=== PATIENT | female | born 1950 | race Caucasian/White ===

== ENCOUNTER 2018-01-09 17:37 | Emergency (ER) | payer MEDICARE, MEDICAID ==
[2018-01-09 18:16] VITALS: BP 174/54
--- NOTE | 2018-01-09 18:46 | EDM.PDOC ---
ED HPI GENERAL MEDICAL PROBLEM - General Chief Complaint: Genitourinary Problem Stated Complaint: UTI Time Seen by Provider: 01/09/18 18:15 Source of Information: Reports: Patient, RN Notes Reviewed History Limitations: Reports: No Limitations - History of Present Illness INITIAL COMMENTS - FREE TEXT/NARRATIVE: 67-year-old female presents emergency department today with complaint of dysuria , she was recently treated for urinary tract infection about 3 weeks ago was treated with Bactrim seven-day course of antibiotics states after the antibiotics she did well for about a week and then over the last 3 days she developed more symptoms of burning with urination she is not had any fevers or back pain - Related Data Allergies Allergy/AdvReac Type Severity Reaction Status Date / Time penicillin Allergy Cannot Verified 01/09/18 18:20 Remember Home Meds: Home Meds Aspirin [Gary Chewable Aspirin] 11/22/14 [History] Levothyroxine [Synthroid] 11/22/14 [History] Metoprolol Tartrate [Lopressor] 11/22/14 [History] Warfarin [Coumadin] 11/22/14 [History] Warfarin [Coumadin] 11/22/14 [History] Past Medical History - Past Surgical History Other GI Surgeries/Procedures: splenectomy Social & Family History - Tobacco Use Smoking Status *Q: Never Smoker ED ROS GENERAL - Review of Systems Review Of Systems: See Below Constitutional: Denies: Fever, Chills GI/Abdominal: Denies: Abdominal Pain, Nausea, Vomiting : Reports: Dysuria, Frequency. Denies: Hematuria ED EXAM, RENAL/ - Physical Exam Exam: See Below Exam Limited By: No Limitations General Appearance: Alert, WD/WN, No Apparent Distress Respiratory/Chest: No Respiratory Distress GI/Abdominal: Soft, Non-Tender Back Exam: No: CVA Tenderness (R), CVA Tenderness (L) Course - Vital Signs Last Recorded V/S: Last Vital Signs Temp 96.8 F 01/09/18 18:25 Pulse 78 01/09/18 18:25 Resp 18 01/09/18 18:25 BP 174/54 H 01/09/18 18:25 Pulse Ox 97 01/09/18 18:25 - Orders/Labs/Meds Orders: Active Orders 24 hr Category Date Time Status CULTURE URINE [RM] Urgent Lab 01/09/18 18:36 Ordered UA W/MICROSCOPIC [URIN] Urgent Lab 01/09/18 18:20 Ordered Labs: Laboratory Tests 01/09/18 Range/Units 18:20 Urine Color Yellow Urine Appearance Slightly cloudy Urine pH 6.5 (4.5-8.0) Ur Specific Emmett 1.010 (1.008-1.030) Urine Protein Negative (NEGATIVE) mg/dL Urine Glucose (UA) Normal (NEGATIVE) mg/dL Urine Ketones Negative (NEGATIVE) mg/dL Urine Occult Blood Large (NEGATIVE) Urine Nitrite Negative (NEGATIVE) Urine Bilirubin Negative (NEGATIVE) Urine Urobilinogen Normal (NORMAL) mg/dL Ur Leukocyte Esterase Large (NEGATIVE) Urine RBC 5-10 H (0-5) Urine WBC 40-50 H (0-5) Ur Epithelial Cells Few Amorphous Sediment Rare Urine Bacteria Moderate Urine Mucus Not seen Urine Other Departure - Departure Time of Disposition: 18:45 Disposition: Home, Self-Care 01 Condition: Good Clinical Impression: UTI, Urinary tract infectious disease - Discharge Information Referrals: PCP,None [Primary Care Provider] - Additional Instructions: Take full course of antibiotics, Please followup with your primary care provider in 5-7 days if not better, please call return to the emergency department with worsening of symptoms. - My Orders Last 24 Hours: My Active Orders 01/09/18 18:20 UA W/MICROSCOPIC [URIN] Urgent 01/09/18 18:36 CULTURE URINE [RM] Urgent - Assessment/Plan Last 24 Hours: My Active Orders 01/09/18 18:20 UA W/MICROSCOPIC [URIN] Urgent 01/09/18 18:36 CULTURE URINE [RM] Urgent Plan: Assessment Acuity = acute Site and laterality = urinary tract infection Etiology = probable bacterial cause Manifestations = dysuria Location of injury = Home Lab values = urinalysis reveals 5-10 rbc's consists with a hematuria and 40-50 WBCs consistent with pyuria cultures pending Plan Because she was recently treated with Bactrim elected to treat her with levofloxacin 500 mg once a day for 5 days however follow-up with her primary care in 5-7 days if no improvement This note was dictated using [employer] voice recognition software please call with any questions on syntax or grammar.
== END 2018-01-09 19:06 | disposition home or self-care (01) ==
LOC: JP.ED 17:37
DX: N39.0 Urinary tract infection, site not specified (principal); Z88.0 Allergy status to penicillin; Z79.82 Long term (current) use of aspirin; Z79.01 Long term (current) use of anticoagulants
CPT/HCPCS: 81001; 87086; 99284

== ENCOUNTER 2020-11-23 20:11 | Emergency (ER) | payer MEDICARE ==
[2020-11-23 20:36] VITALS: BP 170/66; PULSE 91
--- NOTE | 2020-11-23 21:11 | EDM.PDOC ---
ED HPI GENERAL MEDICAL PROBLEM - General Chief Complaint: Lower Extremity Injury/Pain Stated Complaint: R ANKLE SWOLLEN Time Seen by Provider: 11/23/20 20:55 Source of Information: Reports: Patient History Limitations: Reports: No Limitations - History of Present Illness INITIAL COMMENTS - FREE TEXT/NARRATIVE: This is a 70 year old female presenting with right lower extremity swelling. The patient reports that yesterday she noticed swelling of her right ankle and lower leg. She denies any calf pain, but does note a bruise over the anterior guevara that is slightly painful. she does not recall any injury or trauma. She is on Coumadin for heart valve replacement, so she reports she bruises easily. She does note that she was subtherapeutic on her warfarin over the past week though. Last INR was 2.4 2 days ago. She denies any chest pain or SOB. She denies any fever, chills, redness, or warmth to the RLE. Denies swelling in her LLE. She denies history of DVT/PE. Patient reports that she called the nurse line and they were concerned about DVT and told her to come be evaluated. - Related Data Allergies Allergy/AdvReac Type Severity Reaction Status Date / Time penicillin Allergy Cannot Verified 11/23/20 20:31 Remember Home Meds: Home Meds Aspirin [Gary Chewable Aspirin] 1 tab PO DAILY 11/22/14 [History] Levothyroxine [Synthroid] 1 tab PO DAILY 11/22/14 [History] Metoprolol Tartrate [Lopressor] 2 tab PO BID 11/22/14 [History] Warfarin [Coumadin] 1 tab PO DAILY 11/22/14 [History] Alendronate Sodium [Fosamax] 1 tab PO WEEKLY 11/23/20 [History] amLODIPine [Norvasc] 1 tab PO DAILY 11/23/20 [History] atorvaSTATin [Lipitor] 1 tab PO DAILY 11/23/20 [History] Past Medical History Cardiovascular History: Reports: Heart Valve Replacement, High Cholesterol, Hypertension Endocrine/Metabolic History: Reports: Hypoparathyroidism - Past Surgical History Other GI Surgeries/Procedures: splenectomy Female Surgical History: Reports: Hysterectomy, Mastectomy Musculoskeletal Surgical History: Reports: Shoulder Surgery Social & Family History - Tobacco Use Tobacco Use Status *Q: Never Tobacco User Review of Systems - Review of Systems Review Of Systems: Comprehensive ROS is negative, except as noted in HPI. ED EXAM, GENERAL - Physical Exam Exam: See Below Exam Limited By: No Limitations General Appearance: Alert, No Apparent Distress Head: Atraumatic, Normocephalic Neck: Supple, Full Range of Motion Respiratory/Chest: No Respiratory Distress, Lungs Clear, Normal Breath Sounds, No Accessory Muscle Use Cardiovascular: Normal Peripheral Pulses, Regular Rate, Rhythm GI/Abdominal: Soft, Non-Tender, No Distention Extremities: Other (RLE with mild swelling of the foot proximally to about the knee when compared to the left. There is no erythema or warmth. There is a small area of ecchymosis over the anterior aspect of the lower leg. No calf tenderness.). No: Jess's Sign Neurological: Alert, Oriented, CN II-XII Intact, Normal Cognition, No Motor/Sensory Deficits Psychiatric: Normal Affect, Normal Mood Skin Exam: Warm, Dry Course - Vital Signs Last Recorded V/S: Last Vital Signs Temp 97.7 F 11/23/20 20:43 Pulse 91 11/23/20 20:43 Resp 21 H 11/23/20 20:43 BP 170/66 H 11/23/20 20:43 Pulse Ox 95 11/23/20 20:43 - Orders/Labs/Meds Labs: Laboratory Tests 11/23/20 11/23/20 11/23/20 Range/Units 21:15 21:15 21:15 WBC 5.7 (4.5-11.0) K/uL RBC 3.68 (3.30-5.50) M/uL Hgb 11.0 L (12.0-15.0) g/dL Hct 34.9 L (36.0-48.0) % MCV 95 (80-98) fL MCH 30 (27-31) pg MCHC 32 (32-36) % Plt Count 262 (150-400) K/uL Neut % (Auto) 59.7 (36-66) % Lymph % (Auto) 23.1 L (24-44) % Nelson % (Auto) 13.6 H (2-6) % Eos % (Auto) 2.7 (2-4) % Baso % (Auto) 0.9 (0-1) % PT 42.1 H (9.5-12.0) sec INR 3.97 H (0.80-1.20) Sodium 142 (140-148) mmol/L Potassium 3.6 (3.6-5.2) mmol/L Chloride 106 (100-108) mmol/L Carbon Dioxide 28 (21-32) mmol/L Anion Gap 8.3 (5.0-14.0) mmol/L BUN 20 H (7-18) mg/dL Creatinine 0.8 (0.6-1.0) mg/dL Est Cr Clr Drug Dosing 51.01 mL/min Estimated GFR (MDRD) > 60 (>60) Glucose 108 H (74-106) mg/dL Calcium 8.3 L (8.5-10.1) mg/dL Total Bilirubin 0.5 (0.2-1.0) mg/dL AST 60 H (15-37) U/L ALT 56 (12-78) U/L Alkaline Phosphatase 92 (46-116) U/L Total Protein 6.2 L (6.4-8.2) g/dL Albumin 3.4 (3.4-5.0) g/dL Globulin 2.8 (2.3-3.5) g/dL Albumin/Globulin Ratio 1.2 (1.2-2.2) Departure - Departure Time of Disposition: 21:48 Disposition: Home, Self-Care 01 Clinical Impression: Lower extremity edema, Supratherapeutic INR - Discharge Information Referrals: PCP,None [Primary Care Provider] - Forms: ED Department Discharge Additional Instructions: Your INR is supratherapeutic today - please monitor your INR closely at home and discuss with your doctor regarding any dose adjustment of your Coumadin. Elevate your right leg as much as you can over the next few days to help decrease the swelling. Sepsis Event Note (ED) - Evaluation Sepsis Screening Result: No Definite Risk - Focused Exam Vital Signs: Vital Signs Temp Pulse Resp BP Pulse Ox 11/23/20 20:43 97.7 F 91 21 H 170/66 H 95 11/23/20 20:35 97.7 F 91 21 H 170/66 H 95 - Assessment/Plan Assessment:: This is a 70 year old female presenting with right lower leg swelling. differential diagnosis includes DVT, cellulitis, hematoma, CHF, renal failure, liver failure, among others. Patient is afebrile and well appearing here. She does not have any chest pain or SOB to suggest CHF. Her kidney and liver function appears normal on labs. She is mildly anemic with hemoglobin of 11.0, which patient admits is a chronic problem. She denies any bleeding. I considered DVT as a possible cause of her symptoms, but her INR is supratherapeutic today. She did have a few days of subtherapeutic INR and so could have developed a DVT during that time, but even if she does have a DVT, her INR is supratherapeutic and we would not treat her any differently so we did not obtain a lower extremity ultrasound to evaluate for DVT. There was no injury and the patient denies pain. no bony tenderness to indicate need for x-rays as fracture is unlikely. With her supratherapeutic INR, it possible she developed a hematoma that would be causing swelling from a mild trauma that she does not recall, but the extremity is not tense and a large hematoma seems unlikely at this time. Patient is appropriate for discharge home with close follow up with PCP for monitoring of supratherapeutic INR and Coumadin dosing.
== END 2020-11-23 22:25 | disposition home or self-care (01) ==
LOC: JP.ED 20:11
DX: R60.0 Localized edema (principal); R79.1 Abnormal coagulation profile; E78.00 Pure hypercholesterolemia, unspecified; I10 Essential (primary) hypertension; E03.9 Hypothyroidism, unspecified; Z79.01 Long term (current) use of anticoagulants; Z88.0 Allergy status to penicillin; Z79.899 Other long term (current) drug therapy; Z79.82 Long term (current) use of aspirin
CPT/HCPCS: 36415; 80053; 85025; 85610; 99283

== ENCOUNTER 2021-04-21 08:18 | Day surgery (SDC) | payer MEDICARE ==
[2021-04-21] MEDS ORDERED: Sodium Chloride 0.9% 1,000 ML IV SCH (09:30)
[2021-04-21] MEDS ORDERED: fentaNYL 100 MCG/2 ML SDV ONE (10:37)
[2021-04-21] MEDS ORDERED: Propofol 200 MG/20 ML SDV ONE (10:37)
[2021-04-21] MEDS ORDERED: Iopamidol 612 MG/ML 50 ML SDV PO ONE (11:41)
--- NOTE | 2021-04-21 13:07 | OR ---
DATE OF PROCEDURE: 04/21/2021 SURGEON: Junior Zapata MD PROCEDURE: Esophagogastroduodenoscopy. FINDINGS: 1. Inflammation at GE junction concerning for reflux disease (biopsied using cold biopsy forceps). 2. Possible large hiatal hernia. COMPLICATIONS: None. MULTI SENSOR OPERATOR: None. ANESTHESIA: MAC. PREOPERATIVE DIAGNOSIS: Dysphagia. POSTOPERATIVE DIAGNOSIS: Dysphagia. RISKS: Risks, benefits, alternatives, and limitations including, but not limited to infection, bleeding, perforation, false positives, false negatives were explained to the patient, and she wished to proceed. PROCEDURE IN DETAIL: The patient was placed in left lateral decubitus position. The EGD scope was introduced and advanced in. This was advanced to the second part of the duodenum. No evidence of duodenitis or ulceration was noted. The patient did have some mild gastritis, which was biopsied, which showed some very mild gastritis. No active bleeding. Looking at the stomach in an antegrade fashion, it was difficult to determine if this patient did have a rather large hiatal hernia. There appeared to be some narrowing, but difficult to determine due to the large size. She also had some inflammation in the GE junction concerning for reflux disease. This was biopsied using cold biopsy forceps. The air was removed from the stomach. The esophagus was inspected. No abnormalities noted. The patient was scheduled for a CT scan of abdomen and pelvis to further delineate this. Junior Zapata MD /[id number]
[2021-04-21 13:38] VITALS: BP 153/70; PULSE 72
--- NOTE | 2021-04-21 14:18 | CT ---
Abdomen Pelvis wo Cont CLINICAL HISTORY: Hiatal hernia TECHNIQUE: Thin section axial contiguous tomographic sections were taken through the chest without contrast administration. Coronal and sagittal images were reconstructed. Auto dosage reduction and iterative reconstruction techniques employed. FINDINGS: Patient has moderate bilateral pleural effusions. There is some bibasilar airspace disease slightly greater on the left. This likely represent some compressive atelectasis. Patient has had previous sternotomy. There are atherosclerotic changes in the aorta. There is a small hiatal hernia. There are surgical clips in the epigastric region and left upper quadrant. The spleen is absent. The pancreas is poorly defined no obvious mass or ductal dilatation is identified. There are multiple varying size low attenuation foci in both kidneys. These appear to be cysts. No definite calcifications are seen. There is no hydronephrosis. Ureters have a normal course and caliber. The bladder has a normal contour. There is moderate atheromatous change in the aorta without aneurysm. There are left the periaortic clips and sutures just below the renal vessels. The small intestinal configuration is nonacute. There is gas and feces throughout the colon. Uterus is absent. No adnexal mass or free pelvic fluid collections are seen. IMPRESSION: Previous splenectomy related to Hodgkin's lymphoma Moderate bilateral pleural effusions left greater than right Patchy bibasal airspace disease most likely compressive atelectasis. Some pneumonic infiltrate is not excluded Numerous cyst like foci in both kidneys should be correlated with the renal ultrasound Small hiatal hernia
== END 2021-04-21 13:55 | disposition home or self-care (01) ==
LOC: JP.SDS 08:18
PROVIDERS: ATTEND Surgery
DX: K29.70 Gastritis, unspecified, without bleeding (principal); R13.10 Dysphagia, unspecified; K21.9 Gastro-esophageal reflux disease without esophagitis; I10 Essential (primary) hypertension; Z88.0 Allergy status to penicillin
CPT/HCPCS: 43239; 74176; J2704; J3010; J7030; 88305

== ENCOUNTER 2022-01-04 08:55 | Emergency (ER) | payer MEDICARE ==
[2022-01-04 09:15] VITALS: BP 137/53; PULSE 80
== END 2022-01-04 09:33 | disposition home or self-care (01) ==
LOC: JP.ED 08:55
DX: H10.33 Unspecified acute conjunctivitis, bilateral (principal); E78.00 Pure hypercholesterolemia, unspecified; I10 Essential (primary) hypertension; K21.9 Gastro-esophageal reflux disease without esophagitis; Z88.0 Allergy status to penicillin; Z79.82 Long term (current) use of aspirin; Z79.899 Other long term (current) drug therapy; Z79.01 Long term (current) use of anticoagulants
CPT/HCPCS: 99283

== ENCOUNTER 2024-03-12 12:30 | Emergency (ER) | payer MEDICARE ==
[2024-03-12 13:22] LABS: BASOPHILS ABSOLUTE AUTO 0.06 K/uL (0.00-0.10); BASOPHILS PERCENT AUTO 0.9 % (0.1-1.3); EOSINOPHILS PERCENT AUTO 5.7 % (0.0-5.4); HEMATOCRIT 36.7 % (34.3-46.0); HEMOGLOBIN 12.3 g/dL (11.2-15.5); IMMATURE GRAN ABSOLUTE AUTO 0.01 K/uL (0.00-0.23); IMMATURE GRAN PERCENT AUTO 0.1 % (0.0-0.7); LYMPHOCYTES ABSOLUTE AUTO 1.12 K/uL (0.8-3.3); LYMPHOCYTES PERCENT AUTO 16.1 % (11.4-47.7); MEAN CORPUSCULAR HEMOGLOBIN 30.4 pg (31.6-35.5); MEAN CORPUSCULAR HGB CONC 33.5 g/dL (31.6-35.5); MEAN CORPUSCULAR VOLUME 90.6 fL (81.4-99.0); MONOCYTES ABSOLUTE AUTO 0.73 K/uL (0.20-0.90); MONOCYTES PERCENT AUTO 10.5 % (3.3-12.6); NEUTROPHILS ABSOLUTE AUTO 4.65 K/uL (1.0-7.6); NEUTROPHILS PERCENT AUTO 66.7 % (40.0-78.1); PLATELET COUNT,PLT 338 K/uL (130-375); RED BLOOD CELL COUNT 4.05 M/uL (3.77-5.24)
[2024-03-12 13:50] LABS: CALCIUM 9.2 mg/dL (8.5-10.1); CREATININE 0.8 mg/dL (0.6-1.0); EST CRCL DRUG DOSING (CG) 47.71 mL/min; POTASSIUM,K 3.7 mmol/L (3.6-5.2)
[2024-03-12 13:55] LABS: ANION GAP 12.7 mmol/L (5.0-14.0)
[2024-03-12 14:10] LABS: INR 3.2; PROTHROMBIN TIME 31.2 sec (9.2-10.6)
[2024-03-12] MEDS: Nitroglycerin 0.4 MG Tab.SL SL PRN (14:38)
[2024-03-12 17:30] VITALS: BP 128/54; PULSE 80
== END 2024-03-12 17:33 ==
LOC: JP.ED 12:30
DX: I21.4 Non-ST elevation (NSTEMI) myocardial infarction (principal); J90 Pleural effusion, not elsewhere classified; I50.9 Heart failure, unspecified; K21.9 Gastro-esophageal reflux disease without esophagitis; E03.9 Hypothyroidism, unspecified; Z90.710 Acquired absence of both cervix and uterus; Z79.82 Long term (current) use of aspirin; Z79.01 Long term (current) use of anticoagulants; Z79.899 Other long term (current) drug therapy; Z88.0 Allergy status to penicillin; Z88.8 Allergy status to other drugs, medicaments and biological substances
CPT/HCPCS: 36415; 71046; 80048; 83880; 84484; 85025; 85610; 93005; 99285; A9270

== ENCOUNTER 2024-09-24 20:57 | Emergency (ER) | payer MEDICARE ==
[2024-09-24 21:53] VITALS: BP 132/54; PULSE 81
== END 2024-09-25 02:19 | disposition home or self-care (01) ==
LOC: JP.ED 20:57
DX: S42.402A Unspecified fracture of lower end of left humerus, initial encounter for closed fracture (principal); M97.32XA Periprosthetic fracture around internal prosthetic left shoulder joint, initial encounter; K21.9 Gastro-esophageal reflux disease without esophagitis; E03.9 Hypothyroidism, unspecified; Z90.710 Acquired absence of both cervix and uterus; Z88.0 Allergy status to penicillin; Z88.8 Allergy status to other drugs, medicaments and biological substances; Z79.82 Long term (current) use of aspirin; Z79.01 Long term (current) use of anticoagulants; Z79.890 Hormone replacement therapy; Z79.899 Other long term (current) drug therapy; X50.1XXA Overexertion from prolonged static or awkward postures, initial encounter
CPT/HCPCS: 73030-26-LT; 73030-LT; 73060-26-LT; 73060-LT; 73080-26-LT; 73080-LT; 73200-LT; 76377; 99284

== ENCOUNTER 2025-01-07 08:37 | Emergency (ER) | payer MEDICARE ==
[2025-01-07 08:54] LABS: APPEARANCE,URINE TURBID (CLEAR); GLUCOSE,URINE 500 mg/dL (NEGATIVE); OCCULT BLOOD,URINE MODERATE (NEGATIVE)
[2025-01-07 08:55] LABS: SQUAMOUS EPITHELIAL CELLS,UR NOT SEEN /HPF
[2025-01-07 09:21] VITALS: BP 147/44; PULSE 77
== END 2025-01-07 09:21 | disposition home or self-care (01) ==
LOC: JP.ED 08:37
DX: N39.0 Urinary tract infection, site not specified (principal); E78.00 Pure hypercholesterolemia, unspecified; I50.9 Heart failure, unspecified; Z90.710 Acquired absence of both cervix and uterus; Z88.0 Allergy status to penicillin; Z88.8 Allergy status to other drugs, medicaments and biological substances; Z79.82 Long term (current) use of aspirin; Z79.01 Long term (current) use of anticoagulants; Z79.890 Hormone replacement therapy; Z79.899 Other long term (current) drug therapy
CPT/HCPCS: 81001; 87086; 87088; 87186; 99283

== ENCOUNTER 2025-01-18 16:00 | Inpatient (IN) | payer MEDICARE ==
[2025-01-18] MEDS ORDERED: Prochlorperazine 10 MG/2 ML SDV IVPUSH PRN (16:26)
[2025-01-18 16:41] LABS: BASE EXCESS VENOUS 3.7 mm/L; BICARBONATE,VENOUS 27.1 mmol/L; O2 SATURATION VENOUS 77.5; OXYHEMOGLOBIN 75.0 %; PCO2 VENOUS 38.1 mm/Hg; PH,VENOUS 7.466 (7.350-7.450); PO2 VENOUS 42.7 mm/Hg; TOTAL HEMOGLOBIN 13.3 g/dL (12.0-16.0)
[2025-01-18 16:44] LABS: BASOPHILS ABSOLUTE AUTO 0.04 K/uL (0.00-0.10); BASOPHILS PERCENT AUTO 0.2 % (0.1-1.3); EOSINOPHILS PERCENT AUTO 0.0 % (0.0-5.4); IMMATURE GRAN ABSOLUTE AUTO 0.09 K/uL (0.00-0.23); IMMATURE GRAN PERCENT AUTO 0.5 % (0.0-0.7); LYMPHOCYTES ABSOLUTE AUTO 0.33 K/uL (0.8-3.3); LYMPHOCYTES PERCENT AUTO 1.9 % (11.4-47.7); MONOCYTES ABSOLUTE AUTO 0.90 K/uL (0.20-0.90); MONOCYTES PERCENT AUTO 5.1 % (3.3-12.6); NEUTROPHILS ABSOLUTE AUTO 16.16 K/uL (1.0-7.6); NEUTROPHILS PERCENT AUTO 92.3 % (40.0-78.1); PLATELET COUNT,PLT 334 K/uL (130-375); RED BLOOD CELL COUNT 4.53 M/uL (3.77-5.24); WHITE BLOOD CELL COUNT,WBC 17.5 K/uL (3.2-11.0)
[2025-01-18 16:45] LABS: EOSINOPHILS ABSOLUTE AUTO 0.00 K/uL (0.00-0.40)
[2025-01-18 17:05] LABS: ALANINE AMINOTRANSFERASE,ALT 39 U/L (12-78); ASPARTATE AMNIOTRANSFERASE,AST 39 U/L (15-37); BILIRUBIN TOTAL 1.2 mg/dL (0.2-1.0); BLOOD UREA NITROGEN,BUN 22 mg/dL (7-18); CARBON DIOXIDE,CO2 29 mmol/L (21-32); CHLORIDE,CL 101 mmol/L (100-108); CREATININE 0.7 mg/dL (0.6-1.0); EST CRCL DRUG DOSING (CG) 52.21 mL/min; ESTIMATED GFR 90 mL/min (>60); GLUCOSE RANDOM 121 mg/dL (74-106); POTASSIUM,K 3.1 mmol/L (3.6-5.2); PROTEIN TOTAL,TP 7.2 g/dL (6.4-8.2); SODIUM,NA 139 mmol/L (140-148)
[2025-01-18 17:06] LABS: A/G RATIO 1.0 (1.2-2.2)
[2025-01-18 18:12] LABS: APPEARANCE,URINE CLEAR (CLEAR); GLUCOSE,URINE 500 mg/dL (NEGATIVE); OCCULT BLOOD,URINE TRACE-INTACT (NEGATIVE)
[2025-01-18 18:18] LABS: SQUAMOUS EPITHELIAL CELLS,UR RARE /HPF; UROTHELIAL CELLS,URINE NOT SEEN /HPF
[2025-01-18] MEDS ORDERED: LORazepam 2 MG/ML SDV IVPUSH PRN (19:50)
[2025-01-18] MEDS ORDERED: Magnesium Hydroxide 400 MG/5 ML Susp 30 ML Cup PO PRN (19:50)
[2025-01-18] MEDS ORDERED: Albuterol 0.083% 2.5 MG/3 ML Neb Soln NEB PRN (19:50)
[2025-01-18] MEDS ORDERED: Ondansetron 4 MG Tab.DIS PO PRN (19:50)
[2025-01-18 20:00] LABS: INR 3.2
[2025-01-18] MEDS: Lactobacillus Rhamnosus GG (Probiotic) Cap PO SCH (21:10)
[2025-01-19 05:15] LABS: PLATELET COUNT,PLT 283.0 K/uL (130-375); RED BLOOD CELL COUNT 4.02 M/uL (3.77-5.24); WHITE BLOOD CELL COUNT,WBC 12.5 K/uL (3.2-11.0)
[2025-01-19 05:43] LABS: INR 3.1
[2025-01-19 05:50] LABS: BLOOD UREA NITROGEN,BUN 20.0 mg/dL (7-18); CARBON DIOXIDE,CO2 31.0 mmol/L (21-32); CHLORIDE,CL 103.0 mmol/L (100-108); CREATININE 0.7 mg/dL (0.6-1.0); EST CRCL DRUG DOSING (CG) 52.4 mL/min; ESTIMATED GFR 90.0 mL/min (>60); GLUCOSE RANDOM 107.0 mg/dL (74-106); POTASSIUM,K 3.8 mmol/L (3.6-5.2); SODIUM,NA 137.0 mmol/L (140-148); TSH ULTRASENSITIVE 1.308 uIU/mL (0.358-3.740)
[2025-01-19] MEDS: Calcium Carbonate/Vitamin D3 1500 MG-400 Units Tab PO SCH (08:03)
[2025-01-19] MEDS ORDERED: DAPAGLIFLOZIN PROPANEDIOL 5 MG PO SCH (09:00)
[2025-01-19] MEDS ORDERED: CALCIUM CARBONATE 600 MG PO SCH (09:00)
[2025-01-19 09:18] LABS: ALANINE AMINOTRANSFERASE,ALT 37.0 U/L (12-78); ASPARTATE AMNIOTRANSFERASE,AST 37.0 U/L (15-37); BILIRUBIN TOTAL 0.9 mg/dL (0.2-1.0)
[2025-01-19] MEDS: Furosemide 20 MG/2 ML VIAL IVPUSH ONE (09:29)
[2025-01-19] MEDS ORDERED: Warfarin Sliding Scale PO SCH (13:00)
[2025-01-19] MEDS: Furosemide 40 MG/4 ML VIAL IVPUSH SCH (17:42)
[2025-01-20] MEDS: Ondansetron 4 MG/2 ML SDV IV PRN (00:41)
[2025-01-20 11:00] LABS: PLATELET COUNT,PLT 321.0 K/uL (130-375); RED BLOOD CELL COUNT 4.43 M/uL (3.77-5.24); WHITE BLOOD CELL COUNT,WBC 9.7 K/uL (3.2-11.0)
[2025-01-20 11:17] LABS: INR 2.3
[2025-01-20 11:20] LABS: A/G RATIO 0.9 (1.2-2.2); ALANINE AMINOTRANSFERASE,ALT 41 U/L (12-78); ASPARTATE AMNIOTRANSFERASE,AST 40 U/L (15-37); BILIRUBIN TOTAL 1.0 mg/dL (0.2-1.0); BLOOD UREA NITROGEN,BUN 20 mg/dL (7-18); CARBON DIOXIDE,CO2 34 mmol/L (21-32); CHLORIDE,CL 98 mmol/L (100-108); CREATININE 0.7 mg/dL (0.6-1.0); EST CRCL DRUG DOSING (CG) 52.40 mL/min; ESTIMATED GFR 90 mL/min (>60); GLUCOSE RANDOM 98 mg/dL (74-106); POTASSIUM,K 3.1 mmol/L (3.6-5.2); PROTEIN TOTAL,TP 7.3 g/dL (6.4-8.2); SODIUM,NA 136 mmol/L (140-148)
[2025-01-20] MEDS: Sennosides/Docusate Sodium 50-8.6 MG Tab PO PRN (15:04)
[2025-01-21 10:38] LABS: PLATELET COUNT,PLT 343.0 K/uL (130-375); RED BLOOD CELL COUNT 4.28 M/uL (3.77-5.24); WHITE BLOOD CELL COUNT,WBC 9.2 K/uL (3.2-11.0)
[2025-01-21 10:55] LABS: INR 2.5
[2025-01-21 10:59] LABS: A/G RATIO 0.8 (1.2-2.2); ALANINE AMINOTRANSFERASE,ALT 39 U/L (12-78); ASPARTATE AMNIOTRANSFERASE,AST 37 U/L (15-37); BILIRUBIN TOTAL 0.6 mg/dL (0.2-1.0); BLOOD UREA NITROGEN,BUN 22 mg/dL (7-18); CARBON DIOXIDE,CO2 30 mmol/L (21-32); CHLORIDE,CL 100 mmol/L (100-108); CREATININE 0.8 mg/dL (0.6-1.0); EST CRCL DRUG DOSING (CG) 45.85 mL/min; ESTIMATED GFR 77 mL/min (>60); GLUCOSE RANDOM 123 mg/dL (74-106); POTASSIUM,K 3.9 mmol/L (3.6-5.2); PROTEIN TOTAL,TP 7.0 g/dL (6.4-8.2); SODIUM,NA 136 mmol/L (140-148)
[2025-01-21] MEDS: Furosemide 40 MG/4 ML VIAL IVPUSH ONE (16:21)
[2025-01-22 05:53] LABS: PLATELET COUNT,PLT 366.0 K/uL (130-375); RED BLOOD CELL COUNT 4.42 M/uL (3.77-5.24); WHITE BLOOD CELL COUNT,WBC 7.7 K/uL (3.2-11.0)
[2025-01-22 06:07] LABS: INR 2.7
[2025-01-22 06:20] LABS: A/G RATIO 0.8 (1.2-2.2); ALANINE AMINOTRANSFERASE,ALT 40 U/L (12-78); ASPARTATE AMNIOTRANSFERASE,AST 34 U/L (15-37); BILIRUBIN TOTAL 0.6 mg/dL (0.2-1.0); BLOOD UREA NITROGEN,BUN 30 mg/dL (7-18); CARBON DIOXIDE,CO2 31 mmol/L (21-32); CHLORIDE,CL 98 mmol/L (100-108); CREATININE 0.8 mg/dL (0.6-1.0); EST CRCL DRUG DOSING (CG) 45.85 mL/min; ESTIMATED GFR 77 mL/min (>60); GLUCOSE RANDOM 94 mg/dL (74-106); POTASSIUM,K 3.4 mmol/L (3.6-5.2); PROTEIN TOTAL,TP 7.0 g/dL (6.4-8.2); SODIUM,NA 137 mmol/L (140-148)
[2025-01-22] MEDS: Potassium Chloride 20 MEQ Tab.ER PO ONE (09:00)
[2025-01-22 11:36] VITALS: BP 107/64; PULSE 87
== END 2025-01-22 13:45 | disposition home or self-care (01) | DRG 193 ==
LOC: JP.ED 16:00 → JP.MS 19:16
PROVIDERS: ADMIT Registered Nurse; ATTEND Internal Medicine
DX: J18.9 Pneumonia, unspecified organism (principal); I50.9 Heart failure, unspecified; I50.33 Acute on chronic diastolic (congestive) heart failure; J96.01 Acute respiratory failure with hypoxia; J90 Pleural effusion, not elsewhere classified; K21.9 Gastro-esophageal reflux disease without esophagitis; N20.0 Calculus of kidney; I25.2 Old myocardial infarction; E78.00 Pure hypercholesterolemia, unspecified; M54.9 Dorsalgia, unspecified; G89.29 Other chronic pain; M81.0 Age-related osteoporosis without current pathological fracture; E20.9 Hypoparathyroidism, unspecified; H91.90 Unspecified hearing loss, unspecified ear; D64.9 Anemia, unspecified; E61.1 Iron deficiency; Z95.2 Presence of prosthetic heart valve; Z85.3 Personal history of malignant neoplasm of breast; Z85.72 Personal history of non-Hodgkin lymphomas; Z98.890 Other specified postprocedural states; Z90.710 Acquired absence of both cervix and uterus; Z79.01 Long term (current) use of anticoagulants; Z79.899 Other long term (current) drug therapy; Z88.8 Allergy status to other drugs, medicaments and biological substances; Z79.82 Long term (current) use of aspirin; Z88.0 Allergy status to penicillin; Z90.10 Acquired absence of unspecified breast and nipple; Z95.5 Presence of coronary angioplasty implant and graft
CPT/HCPCS: 36415; 71045 ×2; 80053; 80307; 81001; 82803; 83605; 83735; 85025; 85610; 86140; 87040 ×2; 96361; 96365; 99285 ×2; J0456; J7030; J7050; 80048; 82247; 84075; 84132; 84443; 84450; 84460; 85027; 99223; 99232; 99238; A9270-GY; J0696; J1938; J2405; J3480